=== PATIENT | male | born 1970 | race Caucasian/White ===

== ENCOUNTER 2021-12-16 16:49 | Emergency (ER) | payer BC ==
[~2021-12-16] VITALS: Ht 177.8 cm; Wt 102.3 kg
[~2021-12-16 16:49] MED LIST: PREDNISONE20 MG PO
[2021-12-16 16:54] VITALS: TEMP 98
[2021-12-16] MEDS ORDERED: AMOXICILLIN 50500 MG PO (17:00)
[2021-12-16] MEDS ORDERED: PREDNISONE20 MG PO (18:28)
[2021-12-16 18:35] VITALS: BP 142/80; PULSE 70
== END 2021-12-16 18:35 | disposition home or self-care (01) ==
LOC: COL.ER 16:49
DX: T78.40XA Allergy, unspecified, initial encounter (principal)
CPT/HCPCS: J7512